=== PATIENT | female | born 1940 | race Caucasian/White ===

== ENCOUNTER 2023-12-04 11:10 | Emergency (ER) | payer MEDICARE ==
[~2023-12-04] VITALS: Ht 162.6 cm; Wt 67.0 kg
[2023-12-04 14:06] VITALS: TEMP 97.8
[2023-12-04 14:13] LABS: BILIRUBIN,URINE NEGATIVE (Neg); CLARITY,URINE CLEAR (Clear); COLOR,URINE YELLOW (Yellow); GLUCOSE, URINE NEGATIVE (Neg); KETONES,URINE NEGATIVE (Neg); LEUKOCYTE ESTERASE ,URINE NEGATIVE (Neg); NITRITES, URINE NEGATIVE (Neg); OCCULT BLOOD,URINE NEGATIVE (Neg); PH,URINE 6.5 (4.8-8.0); PROTEIN,URINE NEGATIVE (Neg); UROBILINOGEN,URINE 0.2 E.U/dL (0.2-1.0)
[2023-12-04 14:14] LABS: UA COLLECTION TYPE NON-SPECIFIED
[2023-12-04 16:32] VITALS: BP 138/54; PULSE 60; O2SAT 95
[2023-12-04 17:39] VITALS: RESP 16
== END 2023-12-04 17:40 | disposition home or self-care (01) ==
LOC: ER 11:10
DX: S69.91XA Unspecified injury of right wrist, hand and finger(s), initial encounter (principal); S09.93XA Unspecified injury of face, initial encounter; J32.3 Chronic sphenoidal sinusitis; W19.XXXA Unspecified fall, initial encounter; Y93.89 Activity, other specified; Y92.89 Other specified places as the place of occurrence of the external cause; Y99.8 Other external cause status
CPT/HCPCS: 70486; 73130; 81003; 99285